=== PATIENT | female | born 1935 | race Caucasian/White ===

== ENCOUNTER → 2017-11-18 | Outpatient (CLI) | payer OTHER | LOC: FIMAGING 12:55 | PROVIDERS: ATTEND Psychiatry & Neurology Neurology | DX: R41.3 Other amnesia (principal); J32.0 Chronic maxillary sinusitis ==

== ENCOUNTER → 2017-11-18 | Outpatient (CLI) | payer OTHER ==
--- NOTE | 2017-11-18 10:59 | CPEEG ---
DATE OF STUDY: 11/18/2017 INTERPRETATION: Normal EEG during wakefulness and brief drowsiness. There were no potentially epileptogenic abnormalities present during the recording. REPORT: This EEG contains 10 Hz alpha activity over the posterior head regions. There was no abnormal activation at rest, with photic stimulation or hyperventilation. The patient briefly became drowsy during the study. There was no abnormal activation during brief drowsiness or during times of arousal. /[id number]/MODL MTDD
== END ==
LOC: FCPNEURO 07:42
PROVIDERS: ATTEND Psychiatry & Neurology Neurology
DX: R41.3 Other amnesia (principal)